=== PATIENT | female | born 1955 | race Caucasian/White ===

== ENCOUNTER 2024-07-06 18:34 | Emergency (ER) | payer MEDICARE, MEDICAID ==
[~2024-07-06] VITALS: Ht 165.1 cm; Wt 82.0 kg
[2024-07-06 18:42] VITALS: O2SAT 94
[2024-07-06] MEDS ORDERED: IBUPROFEN 600MG TABLET PO ONE (21:00)
[2024-07-06] MEDS ORDERED: NIRM1TAB8 PO (22:31)
[2024-07-06 23:26] VITALS: BP 160/74; PULSE 90; RESP 18; TEMP 38.89200; O2SAT 99
== END 2024-07-06 23:31 | disposition home or self-care (01) ==
LOC: ER 18:34
DX: U07.1 COVID-19 (principal)
CPT/HCPCS: 71045; 87426; 87804; 99284